=== PATIENT | female | born 1975 | race Caucasian/White ===

== ENCOUNTER → 2019-03-24 14:51 | Outpatient (BNVA) | payer MEDICARE, SELFPAY | PROVIDERS: Family Provider Family Medicine; PCP Family Medicine; Visit Provider Specialist | DX: G40.911 Epilepsy, unspecified, intractable, with status epilepticus (principal); G81.10 Spastic hemiplegia affecting unspecified side | CPT/HCPCS: 99215 ==

== ENCOUNTER → 2019-04-03 13:27 | Outpatient (BNVA) | payer MEDICARE, SELFPAY | PROVIDERS: Family Provider Family Medicine; PCP Family Medicine; Visit Provider Specialist | DX: G24.5 Blepharospasm (principal); G81.10 Spastic hemiplegia affecting unspecified side; G43.711 Chronic migraine without aura, intractable, with status migrainosus | CPT/HCPCS: 64612; 99212; J0585 ==

== ENCOUNTER → 2019-07-03 12:12 | Outpatient (BNVA) | payer MEDICARE, SELFPAY | PROVIDERS: Family Provider Family Medicine; PCP Family Medicine; Visit Provider Specialist | DX: G24.5 Blepharospasm (principal); G81.10 Spastic hemiplegia affecting unspecified side; F44.5 Conversion disorder with seizures or convulsions; G51.31 Clonic hemifacial spasm, right | CPT/HCPCS: 99212; J0585 ==

== ENCOUNTER → 2019-09-25 13:06 | Outpatient (BNVA) | payer MEDICARE, SELFPAY | PROVIDERS: Family Provider Family Medicine; PCP Family Medicine; Visit Provider Specialist | DX: G51.31 Clonic hemifacial spasm, right (principal); G81.10 Spastic hemiplegia affecting unspecified side; G24.5 Blepharospasm | CPT/HCPCS: 99213; J0585 ==

== ENCOUNTER → 2020-02-12 14:16 | Outpatient (BNVA) | payer MEDICARE, SELFPAY | PROVIDERS: Family Provider Family Medicine; PCP Family Medicine; Visit Provider Specialist | DX: G24.5 Blepharospasm (principal); G51.31 Clonic hemifacial spasm, right; G81.10 Spastic hemiplegia affecting unspecified side; F44.5 Conversion disorder with seizures or convulsions; G24.3 Spasmodic torticollis; R20.0 Anesthesia of skin | CPT/HCPCS: 64612; 99213; J0585 ==

== ENCOUNTER → 2020-05-20 13:57 | Outpatient (BNVA) | payer MEDICARE, SELFPAY | PROVIDERS: Family Provider Family Medicine; PCP Family Medicine; Visit Provider Specialist | DX: G24.3 Spasmodic torticollis (principal); G51.31 Clonic hemifacial spasm, right; G24.5 Blepharospasm; G81.10 Spastic hemiplegia affecting unspecified side; F44.5 Conversion disorder with seizures or convulsions | CPT/HCPCS: 64612; 99214; J0585 ==

== ENCOUNTER → 2020-11-23 15:02 | Outpatient (BNVA) | payer MEDICARE, SELFPAY | PROVIDERS: Family Provider Family Medicine; PCP Family Medicine; Visit Provider Specialist | DX: G50.0 Trigeminal neuralgia (principal); G24.3 Spasmodic torticollis; G51.31 Clonic hemifacial spasm, right; G81.11 Spastic hemiplegia affecting right dominant side; G24.5 Blepharospasm; F44.5 Conversion disorder with seizures or convulsions | CPT/HCPCS: 99215 ==

== ENCOUNTER → 2020-12-02 11:39 | Outpatient (BNVA) | payer MEDICARE, SELFPAY | PROVIDERS: Family Provider Family Medicine; PCP Family Medicine; Visit Provider Specialist | DX: G24.5 Blepharospasm (principal); G50.0 Trigeminal neuralgia | CPT/HCPCS: 64612; 99213; J0585 ==

== ENCOUNTER → 2021-05-10 09:49 | Outpatient (BNVA) | payer MEDICARE, SELFPAY | PROVIDERS: Family Provider Family Medicine; PCP Family Medicine; Visit Provider Specialist | DX: G24.3 Spasmodic torticollis (principal); G51.31 Clonic hemifacial spasm, right | CPT/HCPCS: 64612; 64616; J0585 ==

== ENCOUNTER → 2021-08-04 13:01 | Outpatient (BNVA) | payer MEDICARE, SELFPAY | PROVIDERS: Family Provider Family Medicine; PCP Family Medicine; Visit Provider Specialist | DX: G51.31 Clonic hemifacial spasm, right (principal); G24.3 Spasmodic torticollis; F44.5 Conversion disorder with seizures or convulsions | CPT/HCPCS: 64612; 64616; 99214; 99215; J0585 ==

== ENCOUNTER → 2021-08-24 15:06 | Outpatient (BNVA) | payer MEDICARE, SELFPAY | PROVIDERS: Family Provider Family Medicine; PCP Family Medicine; Referring Provider Specialist; Visit Provider Specialist | DX: F44.5 Conversion disorder with seizures or convulsions (principal) | CPT/HCPCS: 95816 ==

== ENCOUNTER → 2021-10-27 13:01 | Outpatient (BNVA) | payer MEDICARE, SELFPAY | PROVIDERS: Family Provider Family Medicine; PCP Family Medicine; Visit Provider Specialist | DX: G51.31 Clonic hemifacial spasm, right (principal); G24.5 Blepharospasm; G50.0 Trigeminal neuralgia; R56.9 Unspecified convulsions; I69.398 Other sequelae of cerebral infarction | CPT/HCPCS: 64612; 99213; J0585 ==

== ENCOUNTER → 2022-01-19 13:04 | Outpatient (BNVA) | payer MEDICARE, SELFPAY | PROVIDERS: Family Provider Family Medicine; PCP Family Medicine; Visit Provider Specialist | DX: G51.31 Clonic hemifacial spasm, right (principal); G24.5 Blepharospasm; G50.0 Trigeminal neuralgia; G81.11 Spastic hemiplegia affecting right dominant side; F44.5 Conversion disorder with seizures or convulsions | CPT/HCPCS: 64612; 95911; 99213; J0585 ==

== ENCOUNTER → 2022-05-04 10:38 | Outpatient (BNVA) | payer MEDICARE, SELFPAY | PROVIDERS: Family Provider Family Medicine; PCP Family Medicine; Visit Provider Specialist | DX: G51.31 Clonic hemifacial spasm, right (principal); G24.5 Blepharospasm; Z71.89 Other specified counseling | CPT/HCPCS: 64612; J0585 ==

== ENCOUNTER → 2022-07-27 10:35 | Outpatient (BNVA) | payer MEDICARE, SELFPAY | PROVIDERS: Family Provider Family Medicine; PCP Family Medicine; Visit Provider Specialist | DX: G51.31 Clonic hemifacial spasm, right (principal); G43.711 Chronic migraine without aura, intractable, with status migrainosus; G50.0 Trigeminal neuralgia | CPT/HCPCS: 64612; 99213; J0585 ==

== ENCOUNTER → 2022-10-26 09:32 | Outpatient (BNVA) | payer MEDICARE, SELFPAY | PROVIDERS: Family Provider Family Medicine; PCP Family Medicine; Visit Provider Specialist | DX: G50.0 Trigeminal neuralgia (principal); G51.31 Clonic hemifacial spasm, right | CPT/HCPCS: 36415; 64612; 80157; 99213; J0585 ==

== ENCOUNTER → 2023-02-01 09:50 | Outpatient (BNVA) | payer MEDICARE, SELFPAY | PROVIDERS: Family Provider Family Medicine; PCP Family Medicine; Visit Provider Specialist | DX: G81.11 Spastic hemiplegia affecting right dominant side (principal) | CPT/HCPCS: 64642; 95911 ==

== ENCOUNTER → 2023-03-06 12:22 | Outpatient (BNVA) | payer MEDICARE, SELFPAY | PROVIDERS: Family Provider Family Medicine; PCP Family Medicine; Visit Provider Internal Medicine Pulmonary Disease | DX: R91.1 Solitary pulmonary nodule (principal); Z77.22 Contact with and (suspected) exposure to environmental tobacco smoke (acute) (chronic); R59.9 Enlarged lymph nodes, unspecified | CPT/HCPCS: 99204 ==

== ENCOUNTER 2023-05-08 11:08 | Outpatient (CLI) | payer MEDICARE, SELFPAY ==
--- NOTE | 2023-05-08 12:00 | PETR_ITS ---
PROCEDURE INFORMATION: Exam: PET/CT Skull Base to Mid-thigh Exam date and time: 05/08/2023 12:46 PM Age: 47 years old Clinical indication: Abnormal findings; Pulmonary nodule LABS AND CLINICAL REPORTS: Glucose: 90 mg/dl Treatment strategy for malignancy (PET staging): Initial Staging (PI) TECHNIQUE: Imaging protocol: Following at least four-hour fasting and following the injection of radiopharmaceutical, low dose CT images were obtained. Then, PET images were obtained. Attenuation corrected images were constructed using the CT scan. Fused images of PET and CT were reviewed. The standardized uptake values (SUV) reported below are maximum values within a region of interest, expressed in gm/ml. Exam includes orbital meatal line to mid-thigh. Radiopharmaceutical: 13.4 mCi F-18 FDG (Fluorodeoxyglucose), IV. Time of imaging post radiopharmaceutical administration: 1 hour COMPARISON: DX XR abdomen 1V* 17150 07/18/2021 1:49 AM FINDINGS: Brain: Visualized brain has normal physiologic uptake. Pharynx: No abnormal uptake. Larynx: No abnormal uptake. Lungs, pleura and trachea: There is a 1.1 x 1.0 cm right upper lobe pulmonary nodule. Some mildly increased FDG uptake with SUV max 3.5 is seen just adjacent to this, though there may be some misregistration artifact and this hypermetabolic activity may correspond to the nodule. Heart: Normal physiologic uptake. Mediastinal space: No abnormal uptake. Liver: No abnormal uptake. Gallbladder and bile ducts: No abnormal uptake. Pancreas: No abnormal uptake. Spleen: No abnormal uptake. Adrenal glands: No abnormal uptake. Kidneys and ureters: Normal physiologic uptake. Stomach and bowel: No abnormal uptake. Reproductive: Hysterectomy. Vasculature: No abnormal uptake. Lymph nodes: Right paratracheal lymph nodes have SUV max 3.0. These measure up to 1 cm and appear to have preserved fatty huan. Bones/joints: Focal uptake in the left iliac bone has SUV max 3.6. No definite underlying lesion is seen. Soft tissues: No abnormal uptake in the visualized head, neck, chest, abdomen, pelvis, and extremities. PET/PET skulltothigh INITIAL [id number] IMPRESSION: 1. Mildly hypermetabolic right upper lobe pulmonary nodule. This could be infectious or inflammatory, though neoplastic disease is not excluded. Recommend comparison with prior imaging and close attention on follow-up. 2. Focal uptake in the left iliac bone has SUV max 3.6. No definite underlying lesion is seen. Consider dedicated MRI of the pelvis for further evaluation. 3. Mildly hypermetabolic mediastinal lymph nodes, nonspecific. These do not appear pathologically enlarged.
== END 2023-05-08 11:09 | disposition home or self-care (01) ==
LOC: RAD 11:09
PROVIDERS: PCP Family Medicine; Visit Provider Internal Medicine Pulmonary Disease
DX: R91.1 Solitary pulmonary nodule (principal)
CPT/HCPCS: 78815; A9552

== ENCOUNTER → 2023-05-24 13:13 | Outpatient (BNVA) | payer MEDICARE, SELFPAY | PROVIDERS: PCP Family Medicine; Visit Provider Specialist | DX: G24.5 Blepharospasm (principal); R56.9 Unspecified convulsions; G51.31 Clonic hemifacial spasm, right | CPT/HCPCS: 64642; 99214 ==

== ENCOUNTER → 2023-06-13 11:08 | Outpatient (BNVA) | payer MEDICARE, SELFPAY | PROVIDERS: PCP Family Medicine; Visit Provider Internal Medicine Pulmonary Disease | DX: R91.1 Solitary pulmonary nodule (principal); M89.9 Disorder of bone, unspecified | CPT/HCPCS: 99214 ==

== ENCOUNTER → 2023-08-23 11:46 | Outpatient (BNVA) | payer MEDICARE, SELFPAY | PROVIDERS: PCP Family Medicine; Visit Provider Specialist | DX: G81.11 Spastic hemiplegia affecting right dominant side (principal); G51.31 Clonic hemifacial spasm, right; F44.5 Conversion disorder with seizures or convulsions; G24.5 Blepharospasm; G50.0 Trigeminal neuralgia | CPT/HCPCS: 64642; 99214 ==

== ENCOUNTER → 2023-11-29 10:09 | Outpatient (BNVA) | payer MEDICARE, SELFPAY | PROVIDERS: PCP Family Medicine; Visit Provider Specialist | DX: G51.31 Clonic hemifacial spasm, right; F44.5 Conversion disorder with seizures or convulsions; G24.5 Blepharospasm; G81.11 Spastic hemiplegia affecting right dominant side; G50.0 Trigeminal neuralgia | CPT/HCPCS: 99213 ==

== ENCOUNTER → 2024-03-07 13:08 | Outpatient (BNVA) | payer MEDICARE, SELFPAY | PROVIDERS: PCP Family Medicine; Visit Provider Specialist | DX: G24.5 Blepharospasm (principal); G51.31 Clonic hemifacial spasm, right; F44.5 Conversion disorder with seizures or convulsions | CPT/HCPCS: 64612; 99213 ==

== ENCOUNTER → 2024-06-13 12:24 | Outpatient (BNVA) | payer MEDICARE, SELFPAY | PROVIDERS: PCP Family Medicine; Visit Provider Specialist | DX: G24.5 Blepharospasm (principal) | CPT/HCPCS: 64612; 99213; J9999 ==

== ENCOUNTER → 2024-09-11 15:03 | Outpatient (BNVA) | payer MEDICARE, SELFPAY | PROVIDERS: PCP Family Medicine; Visit Provider Specialist | DX: G24.5 Blepharospasm (principal) | CPT/HCPCS: 64612; 99212; J9999 ==

== ENCOUNTER → 2024-12-25 13:32 | Outpatient (BNVA) | payer MEDICARE, SELFPAY | PROVIDERS: PCP Family Medicine; Visit Provider Specialist | DX: G24.5 Blepharospasm (principal); G50.0 Trigeminal neuralgia; G51.31 Clonic hemifacial spasm, right; F44.5 Conversion disorder with seizures or convulsions; G81.11 Spastic hemiplegia affecting right dominant side | CPT/HCPCS: 64612; 99212; J9999 ==